=== PATIENT | male | born 1960 | race Caucasian/White ===

== ENCOUNTER 2016-12-10 08:12 | Day surgery (SDC) ==
[2016-12-10] MEDS ORDERED: NS 250 ML ONE (08:33)
[2016-12-10] MEDS ORDERED: REMICADE IV ONE (10:00)
[2016-12-10] MEDS ORDERED: NS IV ONE (10:00)
[2016-12-10 12:53] VITALS: BP 139/80
== END 2016-12-10 13:17 | disposition home or self-care (01) ==
LOC: INF 08:12
PROVIDERS: ATTEND Internal Medicine
DX: K50.90 Crohn's disease, unspecified, without complications (principal); Z79.899 Other long term (current) drug therapy
CPT/HCPCS: 96365; 96366; J1745; J7050